=== PATIENT | female | born 1990 | race Caucasian/White ===

== ENCOUNTER 2016-08-02 10:56 | Emergency (ER) | payer OTHER ==
[2016-08-02 11:01] VITALS: TEMP 98.3; BMI 21.7
--- NOTE | 2016-08-02 11:34 | PDOC ---
History of Present Illness - General Chief Complaint: Nausea/Vomiting Stated Complaint: HEADACHE, VOMITING (4 WKS ) Time Seen by Provider: 08/02/16 11:12 - History of Present Illness Initial Comments: 08/02/16 11:28 25 yo F @ 8 weeks gestation based on LMP and with no significant PMHx presents with 2 day history of worsening migraines and nausea. She describes frontal pounding headache especially behind right eye.Accompanied by photophobia and nausea. She has vomited twice which was non bilous. She suffers from migraines in past relieved with Exedrin but was not sure what she could take. Denies any urinary symptoms, CP, SOB, cough, palpitations. Past History - Travel Traveled outside of the country in the last 30 days: No Close contact w/someone who was outside of country & ill: No - Past Medical History Allergies/Adverse Reactions: Allergies Allergy/AdvReac Type Severity Reaction Status Date / Time No Known Allergies Allergy Verified 08/02/16 11:01 Home Medications: Ambulatory Orders NK [No Known Home Medication] 08/02/16 Other medical history: PATIENT DENIES MEDICAL HX - Reproductive History LMP Normal: Yes Is Patient Now?: Yes Expected Date of Delivery: 03/12/17 (#): 1 Para: 0 - Psycho/Social/Smoking Cessation Hx Suicidal Ideation: No Smoking History: Never smoked Hx Alcohol Use: No Drug/Substance Use Hx: No Review of Systems - Review of Systems Able to Perform ROS?: Yes Is the patient limited Romanian proficient: No ABD/GI: Yes: Nausea Neurological: Yes: Headache *Physical Exam - Vital Signs Last Vital Signs Temp Pulse Resp BP Pulse Ox 98.3 F 98 H 16 127/83 100 08/02/16 10:58 08/02/16 10:58 08/02/16 10:58 08/02/16 10:58 08/02/16 10:58 - Physical Exam General Appearance: Yes: Mild Distress HEENT: positive: EOMI, TESSA Neck: positive: Supple Respiratory/Chest: positive: Lungs Clear, Normal Breath Sounds. negative: Accessory Muscle Use Cardiovascular: positive: Regular Rhythm, Regular Rate, S1, S2. negative: Edema , JVD, Murmur Vascular Pulses: Dorsalis-Pedis (R): 2+, Doralis-Pedis (L): 2+ Gastrointestinal/Abdominal: positive: Normal Bowel Sounds, Flat, Soft. negative : Organomegaly, Pulsatile Mass Musculoskeletal: positive: Normal Inspection Integumentary: positive: Normal Color, Dry, Warm. negative: Cyanotic, Erythema Neurologic: positive: reinsurance analyst II-XII NML intact, Fully Oriented, Alert, Normal Mood/ Affect ED Treatment Course - LABORATORY CBC & Chemistry Diagram: 08/02/16 11:52 08/02/16 11:52 - RADIOLOGY Radiograph Interpretation: 08/02/16 15:13 [id number] US/MULTIPLE PREG US(TWINS) Pelvic obstetrical ultrasound: HISTORY: Confirm IUP. Obstetrical ultrasound of the pelvis is performed, including pelvic duplex. 2 gestational sacs are seen each of which contains a live intrauterine consistent with twins. Twin A demonstrates a crown-rump length measurement consistent with 7 week 4 day gestation and twin B demonstrates a crown-rump length measurement consistent with 7 week 3 day gestation. cardiac activity is 156 bpm for twin A and 140 bpm for twin B. Normal amount of amniotic fluid is seen for both twin A and twin B. The right ovary measures 2.1 cm in length and the left ovary measures 3 cm in length and a 1.3 cm sized corpus luteum cyst is seen on the left. Pelvic duplex: Arterial flow is seen to both ovaries. IMPRESSION: Twin gestations as discussed above. Medical Decision Making - Medical Decision Making 08/02/16 11:50 25 yo F @ 8W gestation by LMP presents with headache and nausea. Will send labs- CBC, CMP, UA, Quant BHCg. Trans vag US to confirm IUP. Will order Reglan and tylenol for headache and nausea. 08/02/16 15:14 US reveals twin , and symptoms of headache and nausea have resolved completely. *DC/Admit/Observation/Transfer Diagnosis at time of Disposition: Normal IUP (intrauterine ) on ultrasound Qualifiers: Trimester: first trimester Qualified Code(s): Z34.91 - Encounter for supervision of normal , unspecified, first trimester Twin gestation in first trimester Qualifiers: Multiple gestation type: dichorionic and diamniotic Qualified Code(s): O30.041 - Twin , dichorionic/diamniotic, first trimester - Discharge Dispostion Disposition: HOME Condition at time of disposition: Stable Admit: No - Referrals Referrals: Deuce Weaver MD [Staff Physician] - - Patient Instructions Printed Discharge Instructions: Common Discomforts and Bodily Changes During , Medications and Additional Instructions: Congratulations on your twins. You will need to follow up with as soon as possible for care. Make sure to take your vitamins. Drink plenty of fluids and get good quality sleep. Regular diet. Increase activity as tolerated. If you have any bleeding or abdominal pain please return to ER.
--- NOTE | 2016-08-02 11:37 | PDOC ---
Attending Attestation - Resident Resident Name: Holger Forbes - ED Attending Attestation I have performed the following: I have examined & evaluated the patient, The case was reviewed & discussed with the resident, I agree w/resident's findings & plan - HPI HPI: 08/02/16 13:45 25y F @ 8 weeks based on dates, migraines, presents with 2 day history of worsening headache and nausea/vomiting with photophobia. YOUSSEF c/w with prior headaches, no associated neuro sypmtoms. exam as documented by dr. forbes, Pt received reglan and tylenol and is feeling significantly improved. Pts US noted for twin getation. labs otherwise unremarkable will d/c the pt to fu with business services analyst pt is taking vitamins - Physicial Exam PE: 08/02/16 14:59 see above - Medical Decision Making 08/02/16 14:59 see above
[2016-08-02] MEDS ORDERED: METOCLOPRAMIDE HCL INJECTION 10 MG/2 ML VIAL ONE (11:54)
[2016-08-02] MEDS ORDERED: ACETAMINOPHEN 325 MG TABLET (FP) ONE (11:55)
[2016-08-02 12:14] LABS: BASOPHIL 0.5 % (0-2.0); EOSINOPHIL 2.6 % (0-4.5); MCH 26.9 pg (25.7-33.7); MCHC 32.8 g/dl (32.0-36.0); MEAN CELL VOLUME 82.1 fl (80-96); MEAN PLT VOLUME 8.2 fl (7.5-11.1); NEUTROPHILS 69.8 % (42.8-82.8); PLATELET COUNT 218 K/MM3 (134-434); RDW 12.8 % (11.6-15.6); WHITE BLOOD COUNT 7.1 K/mm3 (4.0-10.0)
[2016-08-02] MEDS: METOCLOPRAMIDE HCL INJECTION 10 MG/2 ML VIAL IVPUSH ONE (12:16)
[2016-08-02] MEDS: ACETAMINOPHEN 325 MG TABLET (FP) PO ONE (12:17)
[2016-08-02 12:45] LABS: ALBUMIN 3.6 g/dl (3.4-5.0); ANION GAP 7 (8-16); BILIRUBIN,TOTAL 0.4 mg/dL (0.2-1.0); CALCIUM 8.9 mg/dL (8.5-10.1); CO2 28 mmol/L (21-32); COCKROFT - GAULT 169.1585; CREATININE 0.5 mg/dL (0.55-1.02); GLUCOSE,RANDOM 86 mg/dL (74-106); SGOT/AST 25 U/L (15-37); SGPT/ALT 54 U/L (12-78); TOT PROT 7.1 g/dl (6.4-8.2)
[2016-08-02 13:01] LABS: ALK PHOS 65 U/L (45-117)
[2016-08-02 15:39] VITALS: BP 118/69; PULSE 80
[2016-08-02 15:46] LABS: URINE APPEARANCE CLEAR; URINE BILIRUBIN NEGATIVE (NEGATIVE); URINE BLOOD NEGATIVE (NEGATIVE); URINE COLOR YELLOW; URINE GLUCOSE (UA) NEGATIVE (NEGATIVE); URINE KETONE 2+ (NEGATIVE); URINE LEUK ESTERASE NEGATIVE (NEGATIVE); URINE NITRITE NEGATIVE (NEGATIVE); URINE PROTEIN NEGATIVE (NEGATIVE); URINE UROBILINOGEN NEGATIVE E.U./dl (0.2-1.0)
== END 2016-08-02 15:39 | disposition home or self-care (01) ==
LOC: JER 10:56
PROC: 3E033GC Introduction of Other Therapeutic Substance into Peripheral Vein, Percutaneous Approach (ICD-10-PCS; principal; 2016-08-02)
DX: O30.041 Twin pregnancy, dichorionic/diamniotic, first trimester (principal); Z3A.08 8 weeks gestation of pregnancy
CPT/HCPCS: 36415; 76810-TC; 80053; 81003; 84702; 85025; 99283-25

== ENCOUNTER 2017-04-03 04:11 | Emergency (ER) | payer OTHER ==
[2017-04-03 04:28] VITALS: BMI 22.2
--- NOTE | 2017-04-03 04:29 | PDOC ---
History of Present Illness - History of Present Illness Initial Comments: 04/03/17 04:34 The patient is a 26 year old female, with a significant past medical history of preeclampsia requiring 6 weeks ago, who presents to the emergency department with 2 weeks of progressive, intermittent, right upper quadrant pain. The patient states her pain is localized to the upper abdomen, more prominent in the right upper quadrant. She states the pain was lasting 30 minutes, however, is now lasting over an hour. She also reports nausea, but denies vomiting. She denies chest pain, shortness of breath, headache and dizziness. She denies fever, chills, vomit, diarrhea and constipation. She denies dysuria, frequency, urgency and hematuria. Allergies: NKDA Past surgical history: PCP - Dr. Weaver <Shaunna Arzola - Last Filed: 04/03/17 04:34> - General History Source: Patient <Neal Reed - Last Filed: 04/03/17 19:36> - General Chief Complaint: Pain Stated Complaint: ABD PAIN Time Seen by Provider: 04/03/17 04:29 Past History <Shaunna Arzola - Last Filed: 04/03/17 04:34> - Past Medical History COPD: No - Reproductive History Expected Date of Delivery: 03/12/17 (#): 1 Para: 0 - Suicide/Smoking/Psychosocial Hx Smoking History: Never smoked Have you smoked in the past 12 months: No Information on smoking cessation initiated: No Hx Alcohol Use: No Drug/Substance Use Hx: No Substance Use Type: None <Neal Reed - Last Filed: 04/03/17 19:36> - Past Medical History Allergies/Adverse Reactions: Allergies Allergy/AdvReac Type Severity Reaction Status Date / Time No Known Allergies Allergy Verified 04/03/17 04:25 Home Medications: Ambulatory Orders Nifedipine 20 mg PO DAILY 04/03/17 Review of Systems - Review of Systems Able to Perform ROS?: Yes Comments:: 04/03/17 04:35 CONSTITUTIONAL: Absent: fever, chills, diaphoresis, generalized weakness, malaise, loss of appetite HEENT: Absent: rhinorrhea, nasal congestion, throat pain, throat swelling, difficulty swallowing, mouth swelling, ear pain, eye pain, visual Changes CARDIOVASCULAR: Absent: chest pain, syncope, palpitations, irregular heart rate, lightheadedness , peripheral edema RESPIRATORY: Absent: cough, shortness of breath, dyspnea with exertion, orthopnea, wheezing, stridor, hemoptysis GASTROINTESTINAL: (+) upper abdominal pain,nausea, Absent: abdominal distension, vomiting, diarrhea, constipation, melena, hematochezia GENITOURINARY: Absent: dysuria, frequency, urgency, hesitancy, hematuria, flank pain, genital pain MUSCULOSKELETAL: Absent: myalgia, arthralgia, joint swelling SKIN: Absent: rash, itching, pallor HEMATOLOGIC/IMMUNOLOGIC: Absent: easy bleeding, easy bruising, lymphadenopathy, frequent infections ENDOCRINE: Absent: unexplained weight gain, unexplained weight loss, heat intolerance, cold intolerance NEUROLOGIC: Absent: headache, focal weakness or paresthesias, dizziness, unsteady gait, seizure, mental status changes, bladder or bowel incontinence PSYCHIATRIC: Absent: anxiety, depression, suicidal or homicidal ideation, hallucinations. <Shaunna Arzola - Last Filed: 04/03/17 04:34> *Physical Exam - Vital Signs Last Vital Signs Temp Pulse Resp BP Pulse Ox 98.8 F 54 L 19 125/73 100 04/03/17 04:25 04/03/17 04:25 04/03/17 04:25 04/03/17 04:25 04/03/17 04:25 - Physical Exam Comments: 04/03/17 04:36 GENERAL: Well developed, well nourished. Awake and alert. No acute distress. HEENT: Normocephalic, atraumatic. PERRLA, EOMI. No conjunctival pallor. Sclera are non- icteric. Moist mucous membranes. Oropharynx is clear. NECK: Supple. Full ROM. No JVD. Carotid pulses 2+ and symmetric, without bruits. No thyromegaly. No lymphadenopathy. CARDIOVASCULAR: Regular rate and rhythm. No murmurs, rubs, or gallops. Distal pulses are 2+ and symmetric. PULMONARY: No evidence of respiratory distress. Lungs clear to auscultation bilaterally. No wheezing, rales or rhonchi. ABDOMINAL: (+) mild tenderness to palpation to the RUQ. Soft. Non-distended. No rebound or guarding. No organomegaly. Normoactive bowel sounds. MUSCULOSKELETAL Normal range of motion at all joints. No bony deformities or tenderness. No CVA tenderness. EXTREMITIES: No cyanosis. No clubbing. No edema. No calf tenderness. SKIN: Warm and dry. Normal capillary refill. No rashes. No jaundice. NEUROLOGICAL: Alert, awake, appropriate. Cranial nerves 2-12 intact. Normoreflexic in the upper and lower extremities. Normal speech. Toes are down-going bilaterally. Gait is normal without ataxia. PSYCHIATRIC: Cooperative. Good eye contact. Appropriate mood and affect. <Shaunna Arzola - Last Filed: 04/03/17 04:34> - Vital Signs Last Vital Signs Temp Pulse Resp BP Pulse Ox 98.8 F 54 L 19 125/73 100 04/03/17 04:25 04/03/17 04:25 04/03/17 04:25 04/03/17 04:25 04/03/17 04:25 <Neal Reed - Last Filed: 04/03/17 19:36> ED Treatment Course - LABORATORY CBC & Chemistry Diagram: 04/03/17 04:41 04/03/17 04:41 <Neal Reed - Last Filed: 04/03/17 19:36> Medical Decision Making - Medical Decision Making 04/03/17 19:36 [email or web address] Reed: The scribe's documentation has been prepared under my direction and personally reviewed by me in its entirery. I confirm that the note above accurately reflects all work, treatment, procedures, and medical decision making performed by me. <Neal Reed - Last Filed: 04/03/17 19:36> *DC/Admit/Observation/Transfer - Attestations Scribe Attestion: 04/03/17 04:37 Documentation prepared by Shaunna Arzola, acting as medical hospital sales for Neal Reed DO <Shaunna Arzola - Last Filed: 04/03/17 04:34> - Discharge Dispostion Admit: No <Neal Reed - Last Filed: 04/03/17 19:36> Diagnosis at time of Disposition: Cholelithiasis - Discharge Dispostion Disposition: HOME Condition at time of disposition: Stable - Referrals Referrals: Deuce Weaver MD [Primary Care Provider] - - Patient Instructions Printed Discharge Instructions: DI for Gallstones Additional Instructions: Call Dr. Dumont from surgery at [phone] to schedule removal of your gallbladder as an outpatient. Return to the emergency department if you have return of the pain or any new, worsening or concerning symptoms. - Post Discharge Activity
[2017-04-03 04:47] LABS: BASOPHIL 0.8 % (0-2.0); EOSINOPHIL 5.9 % (0-4.5); MCH 27.3 pg (25.7-33.7); MCHC 32.7 g/dl (32.0-36.0); MEAN CELL VOLUME 83.6 fl (80-96); MEAN PLT VOLUME 8.3 fl (7.5-11.1); NEUTROPHILS 53.8 % (42.8-82.8); PLATELET COUNT 224 K/MM3 (134-434); RDW 12.4 % (11.6-15.6); WHITE BLOOD COUNT 6.1 K/mm3 (4.0-10.0)
[2017-04-03 04:49] LABS: URINE APPEARANCE SLCLOUDY; URINE BILIRUBIN NEGATIVE (NEGATIVE); URINE BLOOD NEGATIVE (NEGATIVE); URINE COLOR YELLOW; URINE GLUCOSE (UA) NEGATIVE (NEGATIVE); URINE KETONE NEGATIVE (NEGATIVE); URINE LEUK ESTERASE NEGATIVE (NEGATIVE); URINE NITRITE NEGATIVE (NEGATIVE); URINE PROTEIN NEGATIVE (NEGATIVE); URINE UROBILINOGEN NEGATIVE mg/dL (0.2-1.0)
[2017-04-03 05:05] LABS: INR 1.09 (0.82-1.09); PROTHROMBIN TIME (PATIENT) 12.3 SEC (9.98-11.88)
[2017-04-03 05:14] LABS: ALBUMIN 3.8 g/dl (3.4-5.0); ALK PHOS 87 U/L (45-117); ANION GAP 6 (8-16); BILIRUBIN,TOTAL 0.5 mg/dL (0.2-1.0); CALCIUM 8.8 mg/dL (8.5-10.1); CO2 29 mmol/L (21-32); CREATININE 0.6 mg/dL (0.55-1.02); GLUCOSE,RANDOM 120 mg/dL (74-106); SGOT/AST 59 U/L (15-37); SGPT/ALT 86 U/L (12-78); TOT PROT 6.8 g/dl (6.4-8.2)
--- NOTE | 2017-04-03 08:00 | PDOC ---
*Physical Exam - Vital Signs Last Vital Signs Temp Pulse Resp BP Pulse Ox 98.7 F 60 18 119/70 99 04/03/17 08:19 04/03/17 08:19 04/03/17 08:19 04/03/17 08:19 04/03/17 08:19 <Wisam Zimmer - Last Filed: 04/03/17 09:42> - Vital Signs Last Vital Signs Temp Pulse Resp BP Pulse Ox 98.8 F 54 L 19 125/73 100 04/03/17 04:25 04/03/17 04:25 04/03/17 04:25 04/03/17 04:25 04/03/17 04:25 <Evaristo Crowder - Last Filed: 04/03/17 19:20> ED Treatment Course - LABORATORY CBC & Chemistry Diagram: 04/03/17 04:41 04/03/17 04:41 - ADDITIONAL ORDERS Additional order review: Laboratory Results 04/03/17 04/03/17 04/03/17 04:41 04:41 04:40 PT with INR 12.30 H INR 1.09 Sodium 141 Potassium 3.7 Chloride 106 Carbon Dioxide 29 Anion Gap 6 L BUN 17 D Creatinine 0.6 Creat Clearance w eGFR > 60 Random Glucose 120 H D Calcium 8.8 Magnesium 2.0 Total Bilirubin 0.5 D AST 59 H D ALT 86 H D Alkaline Phosphatase 87 D Total Protein 6.8 Albumin 3.8 Lipase 123 Urine Color Yellow Urine Appearance Slcloudy Urine pH 6.0 Ur Specific [place] 1.021 Urine Protein Negative Urine Glucose (UA) Negative Urine Ketones Negative Urine Blood Negative Urine Nitrite Negative Urine Bilirubin Negative Urine Urobilinogen Negative 04/03/17 04:41 RBC 4.26 MCV 83.6 MCHC 32.7 RDW 12.4 MPV 8.3 Neutrophils % 53.8 D Lymphocytes % 31.8 D Monocytes % 7.7 Eosinophils % 5.9 H D Basophils % 0.8 - RADIOLOGY Radiograph Interpretation: 04/03/17 09:42 EXAM: Gallbladder US INTERPRETED BY: Dr. Sanchez REVIEWED BY: Dr. Crowder IMPRESSION: Multiple small mobile gallstones without sonographic evidence of acute cholecystitis. <Wisam Zimmer - Last Filed: 04/03/17 09:42> - LABORATORY CBC & Chemistry Diagram: 04/03/17 04:41 12/13/17 04:41 - ADDITIONAL ORDERS Additional order review: Laboratory Results 04/03/17 04/03/17 04/03/17 04:41 04:41 04:40 PT with INR 12.30 H INR 1.09 Sodium 141 Potassium 3.7 Chloride 106 Carbon Dioxide 29 Anion Gap 6 L BUN 17 D Creatinine 0.6 Creat Clearance w eGFR > 60 Random Glucose 120 H D Calcium 8.8 Magnesium 2.0 Total Bilirubin 0.5 D AST 59 H D ALT 86 H D Alkaline Phosphatase 87 D Total Protein 6.8 Albumin 3.8 Lipase 123 Urine Color Yellow Urine Appearance Slcloudy Urine pH 6.0 Ur Specific [place] 1.021 Urine Protein Negative Urine Glucose (UA) Negative Urine Ketones Negative Urine Blood Negative Urine Nitrite Negative Urine Bilirubin Negative Urine Urobilinogen Negative 04/03/17 04:41 RBC 4.26 MCV 83.6 MCHC 32.7 RDW 12.4 MPV 8.3 Neutrophils % 53.8 D Lymphocytes % 31.8 D Monocytes % 7.7 Eosinophils % 5.9 H D Basophils % 0.8 <Evaristo Crowder - Last Filed: 04/03/17 19:20> Medical Decision Making - Medical Decision Making 04/03/17 07:57 Patient signed out to me by Dr. Felder. On reevaluation the patient currently reports no abdominal pain.Current abdominal exam with no tenderness to palpation. Reports 2 similar prior episodes of epigastric and right upper quadrant pain over the last 2 days. Ultrasound on my read with gallstones, however official read is pending. I informed patient that we were awaiting the ultrasound read to figure out the next step. 04/03/17 09:14 Ultrasound with multiple stones but no signs of acute cholecystitis. Case discussed with Dr. Dumont at 9 AM who will send the PA down to evaluate the patient. 04/03/17 11:17 The patient states she has not been evaluated by the PA yet. Dr. Dumont has been paged again. 04/03/17 12:08 Surgery has not evaluated the patient yet. We have paged them again and they stated that Dr. Dumont is in the OR and will come to see the patient as soon as he is out of the OR. 04/03/17 13:30 Patient has been evaluated by Dr. Dumont. He recommends that the patient can have an elective cholecystectomy if she wishes or she can come in tomorrow for the surgery. Pt wishes to go home for child watch attendant reasons (she has twins). She has been abd pain free since early this morning. No ttp on exam, no rebound or guarding. Will DC pt with return precautions. I discussed the physical exam findings, ancillary test results and final diagnoses with the patient. I answered all of the patient's questions. The patient was satisfied with the care received and felt comfortable with the discharge plan and treatment plan. The patient will call their primary care physician within 24 hours to arrange follow-up and will return to the Emergency Department with any new, persistent or worsening symptoms. <Evaristo Crowder - Last Filed: 04/03/17 19:20> *DC/Admit/Observation/Transfer - Attestations Scribe Attestion: 04/03/17 09:43 Documentation prepared by Wisam Zimmer, acting as bacteriologist medical for Evaristo Crowder MD. <Wisam Zimmer - Last Filed: 04/03/17 09:42> - Discharge Dispostion Admit: No - Attestations Physician Attestion: 04/03/17 13:47 I, Dr. Evaristo Crowder MD, attest that this document has been prepared under my direction and personally reviewed by me in its entirety. I further attest, that it accurately reflects all work, treatment, procedures and medical decision -making performed by me. <Evaristo Crowder - Last Filed: 04/03/17 19:20> Diagnosis at time of Disposition: Cholelithiasis - Discharge Dispostion Disposition: HOME Condition at time of disposition: Stable - Referrals Referrals: Deuce Weaver MD [Primary Care Provider] - - Patient Instructions Printed Discharge Instructions: DI for Gallstones Additional Instructions: Call Dr. Dumont from surgery at [phone] to schedule removal of your gallbladder as an outpatient. Return to the emergency department if you have return of the pain or any new, worsening or concerning symptoms. - Post Discharge Activity
[2017-04-03 10:02] LABS: URINE LEUK ESTERASE NEGATIVE (NEGATIVE)
[2017-04-03 13:25] VITALS: BP 121/74; PULSE 82; TEMP 97.9
--- NOTE | 2017-04-03 13:27 | CONSULT ---
- Consultation REQUESTING PROVIDER: Lakesha CONSULT REQUEST: We have been asked to surgically evaluate this patient for symptomatic gallbladder disease PCP: HISTORY OF PRESENT ILLNESS:26 y/o female presented w/ # days of n/v/ abdominal pain; w/u reveals cholelithiasis w/o acute cholecystitis; she is 6 weeks ; she ? never had this before. NOC. PMHx: none PSHx: C-S Home Medications Medication Instructions Recorded Nifedipine 20 mg PO DAILY 04/03/17 Allergies Allergy/AdvReac Type Severity Reaction Status Date / Time No Known Allergies Allergy Verified 04/03/17 04:25 REVIEW OF SYSTEMS: CONSTITUTIONAL: Absent: fever, chills, diaphoresis, generalized weakness, malaise, loss of appetite, weight change CARDIOVASCULAR: Absent: chest pain, syncope, palpitations, irregular heart rate, lightheadedness , peripheral edema RESPIRATORY: Absent: cough, shortness of breath, dyspnea with exertion, wheezing, stridor, hemoptysis GASTROINTESTINAL: Absent: abdominal pain, abdominal distension, nausea, vomiting, diarrhea, constipation, melena, hematochezia GENITOURINARY: Absent: dysuria, frequency, urgency, hesitancy, hematuria, flank pain, genital pain MUSCULOSKELETAL: Absent: myalgia, arthralgia, joint swelling, back pain, neck pain SKIN: Absent: rash, itching, pallor HEMATOLOGIC/IMMUNOLOGIC: Absent: easy bleeding, easy bruising, lymphadenopathy NEUROLOGIC: Absent: headache, focal weakness, paresthesias, dizziness, unsteady gait, seizure, mental status changes, bladder or bowel incontinence PSYCHIATRIC: Absent: anxiety, depression, suicidal or homicidal ideation, hallucinations. PHYSICAL EXAM: GENERAL: Awake, alert, and fully oriented, in no acute distress. HEAD: Normal with no signs of trauma. EYES: sclera anicteric, conjunctiva clear. NECK: Normal ROM, supple without lymphadenopathy, JVD, or masses. ABDOMEN: Soft, nontender, not distended, normoactive bowel sounds, no guarding, no rebound, no masses. No organomegaly. Healed C-S scar MUSCULOSKELETAL: Normal ROM at all joints. No bony deformities or tenderness. No CVA tenderness. UPPER EXTREMITIES: 2+ pulses, warm, well-perfused. No cyanosis. Cap refill <2 seconds. No peripheral edema. LOWER EXTREMITIES: 2+ pulses, warm, well-perfused. No calf tenderness. No peripheral edema. NEUROLOGICAL: Normal speech, gait not observed. PSYCH: Cooperative. Good eye contact. Appropriate mood and affect. SKIN: Warm, dry, normal turgor, no rashes or lesions noted. Vital Signs Temperature 97.9 F 04/03/17 13:24 Pulse Rate 82 04/03/17 13:24 Respiratory Rate 18 04/03/17 13:24 Blood Pressure 121/74 04/03/17 13:24 O2 Sat by Pulse Oximetry (%) 99 04/03/17 13:24 Lab Results WBC 6.1 K/mm3 (4.0-10.0) 04/03/17 04:41 RBC 4.26 M/mm3 (3.60-5.2) 04/03/17 04:41 Hgb 11.6 GM/dL (10.7-15.3) 04/03/17 04:41 Hct 35.6 % (32.4-45.2) 04/03/17 04:41 MCV 83.6 fl (80-96) 04/03/17 04:41 MCHC 32.7 g/dl (32.0-36.0) 04/03/17 04:41 RDW 12.4 % (11.6-15.6) 04/03/17 04:41 Plt Count 224 K/MM3 (134-434) 04/03/17 04:41 Sodium 141 mmol/L (136-145) 04/03/17 04:41 Potassium 3.7 mmol/L (3.5-5.1) 04/03/17 04:41 Chloride 106 mmol/L (98-107) 04/03/17 04:41 Carbon Dioxide 29 mmol/L (21-32) 04/03/17 04:41 Anion Gap 6 (8-16) L 04/03/17 04:41 BUN 17 mg/dL (7-18) D 04/03/17 04:41 Creatinine 0.6 mg/dL (0.55-1.02) 04/03/17 04:41 Random Glucose 120 mg/dL (74-106) H D 04/03/17 04:41 Calcium 8.8 mg/dL (8.5-10.1) 04/03/17 04:41 INR 1.09 (0.82-1.09) 04/03/17 04:41 US reviewed IMP: biliary colic; cholelithiasis PLAN: D/w patient lap pina which she is amenable to h/e cannot be done today; she needs to go home to her 6 week old twins; will schedule her for an elective lap pina w/in the next week; she is amenable to this; instructed her on reasons to return to the ER sooner if needed; a/a/u by the patient; explained in Slovak and Lithuanian; d/w the ER Attending. Yang Dumont MD FACS Visit type - Case Type Case Type: ED Admission - Emergency Emergency Visit: Yes Care time: The patient presented to the Emergency Department on the above date and was hospitalized for further evaluation of their emergent condition. - New patient This patient is new to me today: Yes Date on this admission: 04/03/17
== END 2017-04-03 13:52 | disposition home or self-care (01) ==
LOC: JER 04:11
DX: O99.63 Diseases of the digestive system complicating the puerperium (principal); K80.20 Calculus of gallbladder without cholecystitis without obstruction
CPT/HCPCS: 36415; 76705-TC; 80053; 81003; 83690; 83735; 85025; 85610; 99284-25

== ENCOUNTER 2017-04-08 10:47 | Day surgery (SDC) | payer OTHER ==
[2017-04-05 13:18] VITALS: BMI 23.6
[2017-04-08] MEDS ORDERED: ONDANSETRON 4 MG/2 ML VIAL IVPUSH PRN (11:52)
[2017-04-08] MEDS ORDERED: oxyCODONE HCL 5 MG TABLET PO PRN (11:52)
[2017-04-08] MEDS ORDERED: PROMETHAZINE HCL 25 MG/1 ML VIAL IVPUSH PRN (11:52)
[2017-04-08] MEDS ORDERED: LACTATED RINGERS SOLUTION 1,000 ML IV SCH (12:00)
[2017-04-08] MEDS ORDERED: DEXAMETHASONE SOD PHOSPHATE 4 MG/1 ML VIAL ONE (12:29)
[2017-04-08] MEDS ORDERED: PROPOFOL 20 ML ONE ×3 (12:29→14:21)
[2017-04-08] MEDS ORDERED: MINERAL OIL/PETROLATUM,WHITE 3.5 GM TUBE ONE (12:29)
[2017-04-08] MEDS ORDERED: SUCCINYLCHOLINE CHLORIDE 200 MG/10 ML VIAL ONE (12:30)
[2017-04-08] MEDS ORDERED: ROCURONIUM BROMIDE 50 MG/5 ML VIAL ONE (12:30)
[2017-04-08] MEDS ORDERED: MIDAZOLAM HCL 2 MG/2 ML SINGLE DOSE VIAL ONE ×2 (12:30)
[2017-04-08] MEDS ORDERED: KETOROLAC TROMETHAMINE 30 MG/1 ML VIAL ONE (12:32)
--- NOTE | 2017-04-08 12:32 | HP ---
History & Physical Update - History History: No Change - Physical Physical: No Change - Assessment Assessment: No Change - Plan Plan: No Change (26 y/o female seen in the ER last week w/ biliary colic; she was txed and released so she she could go home to her 6 week old twin babies; she now returns asymptomatic since then for elective lap possible open cholecytectomy; r/b/t/a's d/w her in depth then and now.)
[2017-04-08] MEDS ORDERED: DESFLURANE GAS 240 ML BOTTLE IH ONE (12:38)
[2017-04-08] MEDS ORDERED: SEVOFLURANE 250 ML BTL ONE (12:38)
[2017-04-08] MEDS ORDERED: ceFAZolin SODIUM 1 GM VIAL ONE (13:13)
[2017-04-08] MEDS ORDERED: ESMOLOL HCL 100,000 MCG/10 ML VIAL ONE (13:37)
[2017-04-08] MEDS ORDERED: LABETALOL HCL 5 MG/1 ML (100MG/20 ML VIAL) ONE (13:39)
[2017-04-08] MEDS ORDERED: BUPIVACAINE HCL/PF 0.5% (5MG/ML) 10 ML VIAL IJ ONE (14:56)
--- NOTE | 2017-04-08 15:25 | OP ---
Operative Note - Note: Operative Date: 04/08/17 Pre-Operative Diagnosis: cholelithiasis; chronic cholelcystitis Operation: lap pina Findings: cholelithiasis; chronic cholecystitis Post-Operative Diagnosis: Same as Pre-op Surgeon: Yang Dumont Finishing Range Supervisor: Melissa Smart Anesthesiologist/DEBONE PROCESSING SUPERVISOR: Miguel Cedillo Anesthesia: General Specimens Removed: gallbladder and contents Estimated Blood Loss (mls): 50 Drains & Tubes with Location: none
[2017-04-08 16:56] VITALS: TEMP 98.5
[2017-04-08] MEDS ORDERED: oxyCODONE HCL 5 MG TABLET ONE ×2 (17:35→18:32)
[2017-04-08] MEDS ORDERED: ONDANSETRON 4 MG/2 ML VIAL ONE (18:01)
[2017-04-08 19:25] VITALS: BP 147/74; PULSE 90
--- NOTE | 2017-04-09 16:41 | SURG ---
Surgery Brake Repairer Hydraulic Note Brake Repairer Hydraulic: Melissa Smart PA-C Date of Service: 04/08/17 Diagnosis: Cholelithasis, chronic cholecystitis Procedure: laparoscopic cholecystectomy I was present for the entirety of the operative procedure. For further detail, please refer to operative report. Visit type - Case Type Case Type: Scheduled Admission - Emergency Emergency Visit: No - New patient This patient is new to me today: Yes Date on this admission: 04/09/17
--- NOTE | 2017-04-09 16:49 | OP ---
DATE OF OPERATION: 04/08/2017 PREOPERATIVE DIAGNOSIS: Chronic cholecystitis, cholelithiasis. POSTOPERATIVE DIAGNOSIS: Chronic cholecystitis, cholelithiasis. PROCEDURE: Laparoscopic cholecystectomy SURGEON: Yang Dumont MD [employer] SALES REPRESENTATIVE: Melissa Smart PA-C ANESTHESIA: General. OPERATIVE FINDINGS: There was cholelithiasis and chronic cholecystitis. The rest of the findings were unremarkable. DESCRIPTION OF PROCEDURE: The patient was placed on the operating table in supine position. After the induction of general anesthesia, the patient's abdomen was prepped with ChloraPrep and draped in sterile fashion. A timeout was taken. A pneumoperitoneum was established above the umbilicus using a Veress needle to an intraabdominal pressure of 15 mmHg. Additional lateral 5-mm ports and a subxiphoid 12-mm port were placed, and the gallbladder placed on cephalad and lateral traction. Dissection was begun in the hepatocystic triangle where the cystic duct was identified, coursing from the neck of the gallbladder distally to the common bile duct. It was bluntly dissected proximally and distally for length. The artery was similarly dissected for length proximally and distally. The peritoneum over the neck of the gallbladder was opened medial and laterally. Then, a critical view of safety was taken. The duct and artery were divided after the placement of large hemoclips proximally and distally. A small posterior branch of the cystic artery was then identified and clipped as well. The gallbladder was then removed from the liver bed in a retrograde fashion using the electrocautery. It was removed from the edge of the liver, placed in an Endo Catch, and brought out through the subxiphoid port and pneumoperitoneum re-established. Irrigation was carried out, and hemostasis was verified. Some bleeding from the liver bed was treated with electrocautery, and a small piece of Surgicel. Again, hemostasis was verified. Then, all ports were removed under laparoscopic vision without evidence of bleeding from the port sites, and the pneumoperitoneum was evacuated. All port sites were infiltrated with 0.50% Marcaine, and the skin edges closed in all cases with continuous 4-0 Vicryl, Monocryl, followed by Steri-Strips and Band-Aid dressings. The patient was then aroused from general anesthesia and transferred to the postanesthesia care unit in stable condition, awake and alert. ESTIMATED BLOOD LOSS: 25 mL REPLACEMENTS: Crystalloid. DRAINS: None. SPECIMENS: Gallbladder and contents to Pathology. I, Yang Dumont MD, was physically present in the operating room from the time the patient was placed on the operating table until she was transferred to the postanesthesia care unit in my accompaniment. MD MARINA Arana/[id number] MTDD
--- NOTE | 2017-04-10 18:09 | PATH ---
Surgical Pathology Report Patient Name: PREMA [facility]. Rec. #: [id number] /Age/Gender: 1990 (Age: 26) / F Account: [id number] Location: [facility] SURGICAL Taken: 04/08/2017 Received: 04/09/2017 Reported: 04/10/2017 Physicians: Yang Dumont MD Specimen(s) Received GALLBLADDER Clinical History Chronic cholecystitis Final Diagnosis GALLBLADDER, LAPAROSCOPIC CHOLECYSTECTOMY: CHRONIC CHOLECYSTITIS, CHOLESTEROLOSIS, AND CHOLELITHIASIS. Electronically Signed Candace Srinivasan M.D. Gross Description Received in formalin, labeled "gallbladder," is a 6.5 x 2.0 x 1.0 cm. gallbladder with a 0.2 cm. in length portion of cystic duct attached. The outer surface is blanca-bowen with a focal defect and varies from smooth to shaggy. The lumen contains 4 yellow, irregular choleliths ranging from 0.3-0.5 cm in greatest dimension. There is no bile present within the lumen. The mucosa is blanca and focally eroded. The wall of the gallbladder averages 0.2 cm. in thickness. Claims Vice President sections are submitted in one cassette. 04/09/2017 [facility]04/09/2017
== END 2017-04-08 18:40 | disposition home or self-care (01) ==
LOC: JASU-SURG 10:47
PROVIDERS: ATTEND Surgery
PROC: 0FT44ZZ Resection of Gallbladder, Percutaneous Endoscopic Approach (ICD-10-PCS; principal; 2017-04-08 12:00)
DX: K80.10 Calculus of gallbladder with chronic cholecystitis without obstruction (principal)
CPT/HCPCS: 36415; 84703; 86850; 86900; 86901; 88304-TC; 94760